=== PATIENT | male | born 2005 | race Caucasian/White ===

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

== ENCOUNTER 2024-03-03 18:52 | Outpatient (CLI) | payer OTHER ==
--- NOTE | 2024-03-04 08:12 | CT Report ---
PROCEDURE: Head WO INDICATIONS: MEMORY LOSS TECHNIQUE: Noncontrast 4.5 mm thick angled axial sections acquired from the foramen magnum to the vertex. For r adiation dose reduction, the following was used: automated exposure control, adjustment of mA and/or kV according to patient size. COMPARISON: None. FINDINGS: Image quality: There is streak artifact seen through the skull base. CSF spaces: Basal cisterns are patent. No extra-axial fluid collections. Ventricles are normal in size and shape. Brain: No midline shift. No intracranial masses or hemorrhage. Thomas-white matter interface is norm al. Skull and face: Calvarium and visualized facial bones are intact, without suspicious lesions. Sinuses: Visualized sinuses and mastoids are clear. IMPRESSION: Unremarkable intracranial study. To the limits of this noncontrast study, no findings of masses or mass effect can be seen. Reviewed by: Sang Bhandari MD on 03/04/2024 7:11 AM ODALYS Approved by: Sang Bhandari MD on 03/04/2024 7:11 AM ODALYS Station ID: [id number]
== END 2024-03-03 18:53 | disposition home or self-care (01) ==
LOC: DI 18:52
PROVIDERS: ATTEND Registered Nurse
DX: R41.3 Other amnesia (principal); R51.9 Headache, unspecified; R55 Syncope and collapse; R42 Dizziness and giddiness

== ENCOUNTER 2024-05-18 23:12 | Emergency (ER) | payer OTHER ==
[2024-05-18 23:22] VITALS: O2SAT 98
--- NOTE | 2024-05-18 23:22 | ED Physician Documentation ---
PD HPI NVD - Stated complaint Stated Complaint: VOMIT - Chief complaint Chief Complaint: Abd Pain - History obtained from History obtained from: Patient - Additonal information Additional information: HPI from patient. Patient complains of nausea and vomiting, onset at approximately 9 PM tonight. Denies injury. There is no inciting event. He has vomited multiple times and has noted blood in some of the vomitus. Has not noted any blood clots. Does not offer abdominal pain as part of his chief complaint, but, on review of systems, he describes mild left upper quadrant burning discomfort. Does not take any blood thinners. Denies history of similar symptoms (hematemesis). Denies h/o heavy/regular alcohol use. Had some alcohol over past (13 of May) weekend but not to excess. Review of Systems Constitutional: denies: Fever, Chills, Sweats Cardiac: reports: Reviewed and negative Respiratory: reports: Reviewed and negative GI: reports: Abdominal Pain, Nausea, Vomiting, Hematemesis. denies: Abdominal Swelling, Constipation, Diarrhea, Bloody / black stool PD PAST MEDICAL HISTORY - Past Medical History Past Medical History: No - Past Surgical History Past Surgical History: No - Present Medications Home Medications: Ambulatory Orders Medication Instructions Recorded Confirmed Ondansetron Odt [Zofran Odt] 4 mg TL Q6H PRN #14 tablet 05/19/24 - Allergies Allergies/Adverse Reactions: Allergies Allergy/AdvReac Type Severity Reaction Status Date / Time Sulfa (Sulfonamide Allergy family Verified 05/18/24 23:20 Antibiotics) allergy - Social History Does the pt smoke?: No Smoking Status: Never smoker Does the pt drink ETOH?: No Does the pt have substance abuse?: No - Immunizations Immunizations are current?: Yes - POLST Patient has POLST: No PD ED PE NORMAL - Vitals Vital signs reviewed: Yes - General General: Alert and oriented X 3, No acute distress, Well developed/nourished - Cardiac Cardiac: RRR, No murmur - Respiratory Respiratory: No respiratory distress, Clear bilaterally - Abdomen Abdomen: Normal bowel sounds, Soft, Non tender, Non distended - Derm Derm: Normal color, Warm and dry Results - Vitals Vitals: Vital Signs - 24 hr 05/18/24 05/19/24 23:16 00:25 Temperature 36.9 C 36.1 C L Heart Rate 87 84 Respiratory 14 16 Rate Blood Pressure 129/93 H 123/67 O2 Saturation 98 98 Oxygen O2 Source Room air - Labs Labs: Laboratory Tests 05/18/24 05/18/24 23:31 23:31 WBC 9.2 RBC 5.08 Hgb 16.2 Hct 45.6 MCV 89.8 MCH 31.9 H MCHC 35.5 RDW 12.2 Plt Count 192 MPV 11.3 Neut # (Auto) 4.6 Lymph # (Auto) 3.5 [place] # (Auto) 0.8 Eos # (Auto) 0.2 Baso # (Auto) 0.1 Absolute Nucleated RBC 0.00 Nucleated RBC % 0.0 Sodium 140 Potassium 3.5 Chloride 102 Carbon Dioxide 28 Anion Gap 10.0 BUN 14 Creatinine 0.9 Estimated GFR (MDRD) 109 Glucose 96 Calcium 9.8 Total Bilirubin 1.0 AST 17 ALT 18 Alkaline Phosphatase 75 Total Protein 7.7 Albumin 4.9 Globulin 2.8 Albumin/Globulin Ratio 1.8 Lipase 29 PD Medical Decision Making - ED course Complexity details: reviewed results, re-evaluated patient, considered differential, d/w patient ED course: Normal CBC (with non-contributory finding of elevated MCH), normal ER abdominal panel. Patient is given 1 L normal saline IV, 4 mg IV Zofran. He is also given 20 mg p.o. Protonix. On reevaluation, patient is still in NAD. He says he feels improved and was able to keep down the Protonix along with sips of water. Results discussed with patient. The cause of his symptoms is not apparent at this time, but he is safe and appropriate for discharge. Return precautions reviewed. Advised to follow- up with his primary care provider next available appointment for reevaluation. Departure - Departure Disposition: 01 Home, Self Care Clinical Impression: Hematemesis Qualifiers: Nausea presence: with nausea Qualified Code(s): K92.0 - Hematemesis Condition: Good Instructions: ED Bleed UGI Stable Prescriptions: Ondansetron Odt [Zofran Odt] 4 mg TL Q6H PRN #14 tablet PRN Reason: Nausea / Vomiting Comments: The results of tonight's blood tests were normal. This includes normal red blood cell counts, normal liver function tests. The cause of your nausea, vomiting, and hematemesis (blood in vomitus) is not apparent at this time. I recommend that you take an acid-blocking medication once per day for 2 weeks such as Nexium or Prilosec; these are mwgh-wir-meohxls medications, and thus no prescription is necessary/provided. The reason for this recommendation is that one of the possible causes of vomiting blood is gastritis or stomach ulcer, and acid-blocking medication can help heal such a lesion. I have electronically submitted a prescription for ondansetron (anti-nausea medication) to the [facility] pharmacy in [place]. Forms: PCP List Discharge Date/Time: 05/19/24 00:25
[2024-05-18 23:35] LABS: BASOPHILS # (AUTO) 0.1 10^3/uL (0.0-0.1); BASOPHILS % (AUTO) 0.8 %; EOSINOPHILS # (AUTO) 0.2 10^3/uL (0.0-0.7); EOSINOPHILS % (AUTO) 2.2 %; HCT - HEMATOCRIT 45.6 % (42.0-52.0); HGB - HEMOGLOBIN 16.2 g/dL (14.0-18.0); LYMPHOCYTES # (AUTO) 3.5 10^3/uL (1.5-3.5); LYMPHOCYTES % (AUTO) 37.6 %; MEAN CORPUSCULAR HEMOGLOBIN 31.9 pg (27.0-31.0); MEAN CORPUSCULAR HGB CONC 35.5 g/dL (32.0-36.0); MEAN CORPUSCULAR VOLUME 89.8 fL (80.0-94.0); MEAN PLATELET VOLUME 11.3 fL (7.4-11.4); MONOCYTES # (AUTO) 0.8 10^3/uL (0.0-1.0); MONOCYTES % (AUTO) 9.1 %; NEUTROPHILS # (AUTO) 4.6 10^3/uL (1.5-6.6); NEUTROPHILS % (AUTO) 50.1 %; PLT - PLATELET COUNT 192 10^3/uL (130-450); RED BLOOD COUNT 5.08 10^6/uL (4.70-6.10); RED CELL DISTRIBUTION WIDTH 12.2 % (12.0-15.0); WHITE BLOOD COUNT 9.2 x10^3/uL (4.8-10.8)
[2024-05-18] MEDS: ONDANSETRON 4 MG/2 ML VIAL IVP STA (23:50)
[2024-05-18] MEDS: SODIUM CHLORIDE 0.9% 1,000 ML IV STA (23:52)
[2024-05-18] MEDS: PANTOPRAZOLE 40 MG TABLET PO STA (23:53)
[2024-05-18 23:55] LABS: ALBUMIN 4.9 g/dL (3.2-5.5); ALBUMIN/GLOBULIN RATIO 1.8 (1.0-2.2); CALCIUM 9.8 mg/dL (8.5-10.3); CREATININE 0.9 mg/dL (0.6-1.3); POTASSIUM 3.5 mmol/L (3.5-4.5); TOTAL PROTEIN 7.7 g/dL (6.4-8.9)
[2024-05-19 00:27] VITALS: BP 123/67
== END 2024-05-19 00:25 | disposition home or self-care (01) ==
LOC: ED 23:12
DX: K92.0 Hematemesis (principal)
CPT/HCPCS: 36415; 80053; 83690; 85025; 96361; 96374; 99284; A9270